=== PATIENT | male | born 2000 | race African-American/Black ===

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

== ENCOUNTER 2024-04-15 12:23 | Emergency (ER) | payer BC, MEDICAID ==
[~2024-04-15] VITALS: Ht 182.9 cm; Wt 86.2 kg
[2024-04-15 12:29] VITALS: O2SAT 100
[2024-04-15] MEDS ORDERED: LIDO700A30 TP (13:44)
[2024-04-15] MEDS ORDERED: IBUP-2028 MT (13:44)
[2024-04-15] MEDS: ACETAMINOPHEN 325MG TABLET PO ONE (13:58)
[2024-04-15] MEDS: LIDOCAINE 5% PATCH TOP SCH (13:58)
[2024-04-15] MEDS: IBUPROFEN 400MG TABLET PO ONE (13:58)
[2024-04-15 14:25] VITALS: BP 122/81; PULSE 55; RESP 17; TEMP 36.66960; O2SAT 100
== END 2024-04-15 14:39 | disposition home or self-care (01) ==
LOC: ER 12:36
DX: M62.011 Separation of muscle (nontraumatic), right shoulder (principal); V89.2XXA Person injured in unspecified motor-vehicle accident, traffic, initial encounter; Y93.89 Activity, other specified; Y92.481 Parking lot as the place of occurrence of the external cause; Y99.8 Other external cause status
CPT/HCPCS: 73030; 99283; A4565